=== PATIENT | male | born 1980 | race Caucasian/White ===

== ENCOUNTER 2017-01-26 02:26 | Emergency (ER) | payer OTHER ==
[~2017-01-26] VITALS: Ht 167.6 cm; Wt 68.0 kg
[2017-01-26 02:30] VITALS: BP 153/80; PULSE 103; RESP 17; TEMP 97.6; O2SAT 95
--- NOTE | 2017-01-26 02:30 | NUR ---
BIB Officer in custody for medical clearance. Patient to ER bed 3 to gown for evaluation. Side rails up.
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
--- NOTE | 2017-01-26 02:37 | NUR ---
ER MD E[place] at bedside evaluating the patient
--- NOTE | 2017-01-26 02:47 | NUR ---
Written and verbal consent obtained from patient for blood alcohol, name and verified by patient. Disinfected patient's skin with iodine that did not contain alcohol or other volatile organic compound. Collected the blood from the subject named by venipuncture, in the presence of Officer [id number]. Used a sterile, dry hypodermic needle and dry vacuum blood collection. The dry vacuum blood collection was supplied by the officer named above. Withdrew a specimen of blood from left antecubital of the subject named above. Inverted the blood tube several times to ensure that the preservative and anticoagulant were thoroughly mixed in the blood specimen. I initialed the blood tube label for identification. The labeled blood tube was handed directly to the Officer named above. The blood tube stopper remained in place while I had possession of the blood tube. The Officer placed tube into envelope and sealed it in my presence. Envelope initialed by myself and Officer named above. Patient tolerated well, bandage applied, and bleeding controlled.
[2017-01-26 02:53] VITALS: BP 137/74; PULSE 91; RESP 17; TEMP 97.8; O2SAT 96
--- NOTE | 2017-01-26 02:53 | NUR ---
Patient discharged in custody of law enforcement, given written and verbal discharge instructions and verbalizes understanding. Patient in stable condition. ID arm band removed. Patient educated on pain management and to follow up with PMD. Pain Scale 0/10. Opportunity for questions provided and answered.
== END 2017-01-26 02:53 ==
LOC: SED 02:26
DX: Z02.83 Encounter for blood-alcohol and blood-drug test (principal); R03.0 Elevated blood-pressure reading, without diagnosis of hypertension
CPT/HCPCS: 99283